=== PATIENT | male | born 1995 | race African-American/Black ===

== ENCOUNTER 2019-09-15 10:08 | Emergency (ER) | payer OTHER ==
[~2019-09-15] VITALS: Ht 157.5 cm; Wt 58.6 kg
[2019-09-15] MEDS ORDERED: ERYT1OIN26 OS (11:17)
[2019-09-15 11:26] VITALS: BP 113/68
== END 2019-09-15 11:30 | disposition home or self-care (01) ==
LOC: M ED 10:08
DX: H01.004 Unspecified blepharitis left upper eyelid (principal)